=== PATIENT | male | born 1970 ===

== ENCOUNTER 2021-07-23 05:59 | Observation (INO) ==
[2021-07-23 06:28] LABS: Basophils % 0.4 % (0.0-0.8); Eosinophils % 0.7 % (0.00-10.9); Hematocrit 43.3 VOL% (42.0-52.0); Immature Granulocytes % 0.4 %; Immature Granulocytes Absolute 0.02 #; Lymphocytes # 0.9 10*3/uL (1.4-4.0); Lymphocytes % 15.8 % (21.2-54.2); Mean Corpuscular HGB Conc 32.3 GM/DL (32-36); Mean Corpuscular Volume 93.5 FL (87-102); Mean Platelet Volume 9.8 FL (9.6-12.0); Monocytes # 0.6 10*3/uL (0.11-0.8); Monocytes % 10.9 % (1.7-12.7); Neutrophils % 71.8 % (38.7-73.9); Platelet Count 143 T/CUMM (130-400); Red Blood Count 4.63 MC/CUMM (3.8-5.5); Red Cell Distribution Width 14.2 % (9.3-17.3); White Blood Count 5.6 T/CUMM (4-12)
[2021-07-23] MEDS ORDERED: LIDOCAINE 1%/EPI INJ 20 ML VIAL ONE (06:28)
[2021-07-23] MEDS ORDERED: BUPIVACAINE MPF 0.25% 30 ML VIAL ONE (06:28)
[2021-07-23] MEDS ORDERED: HEPARIN 5,000 UNIT/1 ML VIAL ONE (06:28)
[2021-07-23] MEDS ORDERED: propofoL 200 MG/20 ML VIAL IV ONE (06:45)
[2021-07-23] MEDS ORDERED: fentaNYL 100 MCG/2 ML VIAL ONE (06:45)
[2021-07-23] MEDS ORDERED: SODIUM CHLORIDE 0.9% 250 ML IV ONE (06:45)
[2021-07-23] MEDS ORDERED: MIDAZOLAM 2 MG/2 ML VIAL ONE (06:45)
[2021-07-23] MEDS ORDERED: ETOMIDATE 40 MG/20 ML VIAL IV ONE (06:45)
[2021-07-23 06:47] LABS: Calcium 9.7 MG/DL (8.5-10.1); Osmolality,Calculated 272.1 MOS/KG (273-304)
[2021-07-23] MEDS ORDERED: SODIUM CHLORIDE 0.9% 250 ML IV SCH (07:30)
[2021-07-23] MEDS ORDERED: ASPIRIN EC 325 MG TABLET PO ONE (07:33)
[2021-07-23] MEDS ORDERED: HEPARIN LOCK FLUSH 500 UNIT/5 ML SYRINGE IV ONE ×2 (07:36→07:53)
[2021-07-23] MEDS ORDERED: hydrALAZINE 20 MG/1 ML VIAL IV PRN (07:55)
[2021-07-23] MEDS ORDERED: MAGNESIUM SULF RIDER 4 GM/100 ML PREMIX IV PRN (07:55)
[2021-07-23] MEDS ORDERED: MAGNESIUM SULF RIDER 2 GM/50 ML PREMIX IV PRN (07:55)
[2021-07-23] MEDS ORDERED: diphenhydrAMINE CAP 25 MG CAPSULE PO PRN (07:55)
[2021-07-23] MEDS ORDERED: ACETAMINOPHEN 325 MG TABLET PO PRN (07:55)
[2021-07-23] MEDS ORDERED: ONDANSETRON 4 MG/2 ML VIAL IV PRN (07:55)
[2021-07-23] MEDS ORDERED: ALUMINUM/MAGNES/SIMETH MAX STR 30 ML UDCUP PO PRN (07:55)
[2021-07-23] MEDS ORDERED: MORPHINE 2 MG/1 ML SYRINGE IV PRN (07:55)
[2021-07-23] MEDS: METOPROLOL TARTRATE 25 MG TABLET PO SCH ×2 (08:04→10:17)
[2021-07-23] MEDS: PANTOPRAZOLE 40 MG TABLET PO SCH (10:17)
[2021-07-23] MEDS ORDERED: hydrALAZINE 20 MG/1 ML VIAL IV ONE (11:16)
[2021-07-23] MEDS ORDERED: DEXTROSE 10% 25 GM/250 ML BAG IV PRN (11:29)
[2021-07-23] MEDS ORDERED: GLUCAGON 1 MG VIAL IM PRN (11:29)
[2021-07-23 11:48] LABS: Risk Ratio 2.68; VLDL Cholesterol 14.6 MG/DL
[2021-07-23] MEDS: amLODIPine 10 MG TABLET PO SCH (12:31)
[2021-07-23] MEDS: HEPARIN 5,000 UNIT/1 ML VIAL SUBCUT SCH ×2 (12:40→20:32)
[2021-07-23] MEDS: hydrALAZINE 25 MG TABLET PO SCH ×2 (14:25→14:26)
[2021-07-23] MEDS: INSULIN REGULAR 100 UNIT/ML SUBCUT SCH ×3 (14:41→20:40)
[2021-07-23] MEDS: METOPROLOL TARTRATE 50 MG TABLET PO SCH (20:31)
[2021-07-23] MEDS ORDERED: ROSUVASTATIN 20 MG TABLET PO SCH (21:00)
[2021-07-24 06:55] LABS: Basophils % 0.4 % (0.0-0.8); Eosinophils # 0.1 10*3/uL (0.0-0.87); Eosinophils % 1.1 % (0.00-10.9); Hematocrit 44.6 VOL% (42.0-52.0); Hemoglobin 14.4 GM/DL (14.0-18.0); Immature Granulocytes % 0.2 %; Immature Granulocytes Absolute 0.01 #; Lymphocytes # 0.8 10*3/uL (1.4-4.0); Lymphocytes % 13.4 % (21.2-54.2); Mean Corpuscular HGB Conc 32.3 GM/DL (32-36); Mean Corpuscular Volume 93.9 FL (87-102); Mean Platelet Volume 10.3 FL (9.6-12.0); Monocytes # 0.6 10*3/uL (0.11-0.8); Monocytes % 9.9 % (1.7-12.7); Red Blood Count 4.75 MC/CUMM (3.8-5.5); Red Cell Distribution Width 14.1 % (9.3-17.3); White Blood Count 5.7 T/CUMM (4-12)
[2021-07-24 06:56] LABS: Platelet Count 128 T/CUMM (130-400)
[2021-07-24 07:10] LABS: Calcium 9.2 MG/DL (8.5-10.1); Osmolality,Calculated 280.1 MOS/KG (273-304); Potassium 4.9 MMOL/L (3.5-5.1)
[2021-07-24 07:13] LABS: Albumin 3.4 G/DL (3.4-5.0); Calcium 9.7 MG/DL (8.5-10.1); Osmolality,Calculated 275.4 MOS/KG (273-304); Potassium 4.9 MMOL/L (3.5-5.1); Total Protein 7.5 G/DL (6.4-8.2)
[2021-07-24] MEDS ORDERED: ASPIRIN EC 81 MG TABLET PO SCH (09:00)
[2021-07-24] MEDS: METOPROLOL TARTRATE 50 MG TABLET PO SCH (09:10)
[2021-07-24] MEDS: INSULIN REGULAR 100 UNIT/ML SUBCUT SCH (09:10)
[2021-07-24] MEDS: PANTOPRAZOLE 40 MG TABLET PO SCH (09:10)
[2021-07-24] MEDS: amLODIPine 10 MG TABLET PO SCH (09:10)
[2021-07-24] MEDS: HEPARIN 5,000 UNIT/1 ML VIAL SUBCUT SCH (09:11)
[2021-07-24 13:09] VITALS: BP 166/79
== END 2021-07-24 13:49 | disposition home or self-care (01) ==
LOC: N.OR 05:59 → N.SDSINP 05:59 → N.TELES 09:59
PROVIDERS: ADMIT Internal Medicine Cardiovascular Disease; ATTEND Surgery